=== PATIENT | male | born 1990 | race Two or more races ===

== ENCOUNTER 2018-04-23 07:03 | Emergency (ER) | payer MEDICAID, OTHER ==
[~2018-04-23] VITALS: Ht 172.7 cm; Wt 127.0 kg
[2018-04-23] MEDS ORDERED: SODIUM CHLORIDE 0.9% 1,000 ML IVB ONE (07:33)
[2018-04-23] MEDS ORDERED: KETOROLAC TROMETH 30 MG/ML 1ML VIAL IV ONE (07:45)
[2018-04-23] MEDS ORDERED: ONDANSETRON HCL 4 MG/2 ML VIAL IV ONE (07:45)
[2018-04-23] MEDS ORDERED: SODIUM CHLORIDE 0.9% 1,000 ML IV ONE (08:31)
[2018-04-23 08:35] LABS: Basophils # (auto) 0 uL; Basophils % (auto) 0.6 % (0.0-2.0); Eosinophils # (auto) 0.1 uL; Eosinophils % (auto) 1.7 % (0.0-7.0); Hemoglobin 13.3 g/dL (13.5-17.5); Lymphocytes # (auto) 0.9 uL; Lymphocytes % (auto) 16.7 % (10.0-50.0); Mean Corpuscular Hgb Conc. 33.3 g/dL (32.0-36.0); Monocytes # (auto) 0.3 uL; Monocytes % (auto) 5.9 % (0.0-12.0); Neutrophils # (auto) 4.1 uL; Neutrophils % (auto) 75.1 % (37.0-80.0); Platelet Count (auto) 207 10^3/uL (140-450); Red Cell Distribution Width 13.8 % (11.8-14.3); White Blood Cell 5.5 10^3/uL (4.4-10.8)
[2018-04-23 08:43] LABS: Albumin 3.3 g/dL (3.4-5.0); BUN/Creatinine Ratio 9.2; Potassium 4.4 mmol/L (3.5-5.1)
[2018-04-23 08:46] LABS: Bilirubin, Total 0.3 mg/dL (0.2-1.0)
[2018-04-23 09:26] LABS: Urine Bacteria FEW /hpf (None Seen); Urine Blood 3+ /uL (Negative); Urine Mucus FEW (None Seen); Urine Specific Gravity 1.018 (1.001-1.035); Urine WBC 4 /hpf (0 - 3)
[2018-04-23 10:47] VITALS: BP 145/67
== END 2018-04-23 10:54 | disposition home or self-care (01) ==
LOC: ER 07:03
DX: N20.0 Calculus of kidney (principal); F12.10 Cannabis abuse, uncomplicated
CPT/HCPCS: 36415; 74176; 80053; 81001; 85025; 96374; 96375; 99285; J1885; J2405

== ENCOUNTER 2021-12-02 09:44 | Emergency (ER) | payer MEDICAID ==
[~2021-12-02] VITALS: Ht 175.3 cm; Wt 150.1 kg
[2021-12-02] MEDS ORDERED: SODIUM CHLORIDE 0.9% 1,000 ML IV ONE (15:00)
[2021-12-02] MEDS ORDERED: cefTRIAXone 1GM/50ML D5W 50 ML IV ONE (15:00)
[2021-12-02] MEDS ORDERED: SODIUM CHLORIDE 0.9% 500 ML IV ONE (15:00)
[2021-12-02 15:24] LABS: Basophils # (auto) 0.1 10 ^3/uL (0-0.2); Basophils % (auto) 1.1 % (0.0-2.0); Eosinophils # (auto) 0.4 10 ^3/uL (0-0.8); Hematocrit 38.9 % (41.0-53.0); Hemoglobin 12.5 g/dL (13.5-17.5); Lymphocytes # (auto) 1.4 10 ^3/uL (0.4-5.4); Lymphocytes % (auto) 27.6 % (10.0-50.0); Mean Corpuscular Hemoglobin 27.7 pg (28.0-32.0); Mean Corpuscular Hgb Conc. 32.2 g/dL (32.0-36.0); Mean Corpuscular Volume 86.1 fL (80.0-100.0); Monocytes # (auto) 0.4 10 ^3/uL (0-1.3); Monocytes % (auto) 7.3 % (0.0-12.0); Neutrophils # (auto) 2.9 10 ^3/uL (1.6-8.6); Red Blood Cells 4.52 10^6/uL (4.5-5.90); Red Cell Distribution Width 15.5 % (11.8-14.3); White Blood Cell 5.1 10^3/uL (4.4-10.8)
[2021-12-02 15:43] LABS: Albumin 3.6 g/dL (3.4-5.0); Calcium 8.6 mg/dL (8.5-10.1); Magnesium 2.6 mg/dL (1.6-2.6); Potassium 3.9 mmol/L (3.5-5.1)
[2021-12-02 15:45] LABS: BUN/Creatinine Ratio 18.2
[2021-12-02 15:48] LABS: Bilirubin, Total 0.4 mg/dL (0.2-1.0); Total Protein 7.2 g/dL (6.4-8.2)
[2021-12-02] MEDS ORDERED: NAP500T PO (16:46)
[2021-12-02] MEDS ORDERED: CEFD300C2 PO (16:46)
[2021-12-02] MEDS ORDERED: SILV1CRE82 TOP (16:46)
[2021-12-02 17:56] VITALS: BP 121/81
== END 2021-12-02 18:00 | disposition home or self-care (01) ==
LOC: ER 09:44
DX: I87.031 Postthrombotic syndrome with ulcer and inflammation of right lower extremity (principal); I87.2 Venous insufficiency (chronic) (peripheral); E66.9 Obesity, unspecified; Z68.42 Body mass index [BMI] 45.0-49.9, adult
CPT/HCPCS: 36415; 71046; 80053; 83735; 85025; 93005; 93971; 96365; 99285; J0696; J7030

== ENCOUNTER 2023-01-20 11:08 | Inpatient (IN) | payer MEDICAID ==
[~2023-01-20] VITALS: Ht 175.3 cm; Wt 188.4 kg
[~2023-01-20 11:08] MED LIST: CEFD300C2 PO; NAP500T PO; SILV1CRE82 TOP
[2023-01-20] MEDS ORDERED: CLINDAMYCIN 900MG IV 50 ML IV ONE (13:45)
[2023-01-20] MEDS ORDERED: cefTRIAXone 1GM/50ML D5W 50 ML IV ONE (13:45)
[2023-01-20 14:22] LABS: Basophils # (auto) 0 10 ^3/uL (0-0.2); Basophils % (auto) 0.6 % (0.0-2.0); Eosinophils # (auto) 0.2 10 ^3/uL (0-0.8); Eosinophils % (auto) 2.6 % (0.0-7.0); Hematocrit 40.5 % (41.0-53.0); Hemoglobin 13.3 g/dL (13.5-17.5); Lymphocytes % (auto) 25.8 % (10.0-50.0); Mean Corpuscular Hemoglobin 27.5 pg (28.0-32.0); Mean Corpuscular Hgb Conc. 32.8 g/dL (32.0-36.0); Mean Corpuscular Volume 83.9 fL (80.0-100.0); Monocytes # (auto) 0.6 10 ^3/uL (0-1.3); Monocytes % (auto) 7.6 % (0.0-12.0); Neutrophils # (auto) 4.8 10 ^3/uL (1.6-8.6); Neutrophils % (auto) 63.4 % (37.0-80.0); Nucleated Red Blood Cells % 0.1 %; Red Blood Cells 4.83 10^6/uL (4.5-5.90); Red Cell Distribution Width 16.3 % (11.8-14.3); White Blood Cell 7.6 10^3/uL (4.4-10.8)
[2023-01-20 14:40] LABS: Albumin 3.8 g/dL (3.4-5.0); Potassium 3.5 mmol/L (3.5-5.1)
[2023-01-20 14:42] LABS: BUN/Creatinine Ratio 20.5 (10.0-20.0)
[2023-01-20 14:45] LABS: Bilirubin, Total 0.5 mg/dL (0.2-1.0); Total Protein 8.3 g/dL (6.4-8.2)
[2023-01-20] MEDS ORDERED: CLINDAMYCIN HCL 150 MG CAP PO ONE (15:00)
[2023-01-20] MEDS ORDERED: ACETAMINOPHEN 325 MG TAB PO PRN (16:15)
[2023-01-20] MEDS: SODIUM CHLORIDE 0.9% 1,000 ML IV SCH (17:46)
[2023-01-20 17:52] LABS: CRP High Sensitivity 3.05 mg/dL (< 0.3)
[2023-01-20 22:09] VITALS: PULSE 101; RESP 20; O2SAT 94
[2023-01-20] MEDS: CLINDAMYCIN HCL 150 MG CAP PO SCH (22:20)
[2023-01-20 23:07] VITALS: PULSE 94; RESP 17; O2SAT 96
[2023-01-20 23:15] VITALS: BP 122/68; PULSE 94; RESP 17; TEMP 98; O2SAT 94
[2023-01-21 05:00] VITALS: BP 146/74; PULSE 83; RESP 20; TEMP 98.9; O2SAT 96
[2023-01-21] MEDS: CLINDAMYCIN HCL 150 MG CAP PO SCH ×3 (05:28→21:13)
[2023-01-21 06:56] LABS: Basophils # (auto) 0 10 ^3/uL (0-0.2); Basophils % (auto) 0.5 % (0.0-2.0); Eosinophils # (auto) 0.2 10 ^3/uL (0-0.8); Eosinophils % (auto) 2.7 % (0.0-7.0); Lymphocytes # (auto) 1.7 10 ^3/uL (0.4-5.4); Lymphocytes % (auto) 26.7 % (10.0-50.0); Mean Corpuscular Hemoglobin 27.3 pg (28.0-32.0); Mean Corpuscular Hgb Conc. 32.4 g/dL (32.0-36.0); Mean Corpuscular Volume 84.3 fL (80.0-100.0); Monocytes # (auto) 0.5 10 ^3/uL (0-1.3); Monocytes % (auto) 8.1 % (0.0-12.0); Red Blood Cells 4.39 10^6/uL (4.5-5.90); White Blood Cell 6.5 10^3/uL (4.4-10.8)
[2023-01-21 07:12] LABS: Potassium 3.8 mmol/L (3.5-5.1)
[2023-01-21 07:21] LABS: Albumin 3.2 g/dL (3.4-5.0); Bilirubin, Total 0.4 mg/dL (0.2-1.0); Calcium 8.2 mg/dL (8.5-10.1); Total Protein 7.1 g/dL (6.4-8.2)
[2023-01-21 08:00] VITALS: PULSE 97; RESP 20; O2SAT 100
[2023-01-21 09:00] VITALS: BP 119/77; PULSE 97; RESP 20; TEMP 97.9; O2SAT 100
[2023-01-21] MEDS ORDERED: cefTRIAXone 1GM/50ML D5W 50 ML IV SCH (09:00)
[2023-01-21] MEDS: ENOXAPARIN SOD 40 MG/0.4 ML SYRINGE SC SCH (10:19)
[2023-01-21] MEDS: SODIUM CHLORIDE 0.9% 1,000 ML IV SCH (10:26)
[2023-01-21 12:46] VITALS: BP 145/74; PULSE 84; RESP 18; TEMP 98; O2SAT 96
[2023-01-21 16:58] VITALS: BP 130/85; PULSE 88; RESP 18; TEMP 98.7; O2SAT 100
[2023-01-21 22:00] VITALS: BP 118/84; PULSE 90; RESP 19; TEMP 98.4; O2SAT 93
[2023-01-22] MEDS: SODIUM CHLORIDE 0.9% 1,000 ML IV SCH (04:03)
[2023-01-22 05:00] VITALS: BP 137/94; PULSE 94; RESP 22; TEMP 98.4; O2SAT 98
[2023-01-22 05:58] LABS: Basophils # (auto) 0 10 ^3/uL (0-0.2); Basophils % (auto) 0.5 % (0.0-2.0); Eosinophils # (auto) 0.2 10 ^3/uL (0-0.8); Eosinophils % (auto) 2.9 % (0.0-7.0); Hematocrit 37.9 % (41.0-53.0); Hemoglobin 12.2 g/dL (13.5-17.5); Lymphocytes # (auto) 1.8 10 ^3/uL (0.4-5.4); Lymphocytes % (auto) 28.1 % (10.0-50.0); Mean Corpuscular Hemoglobin 27.4 pg (28.0-32.0); Mean Corpuscular Hgb Conc. 32.1 g/dL (32.0-36.0); Mean Corpuscular Volume 85.4 fL (80.0-100.0); Monocytes # (auto) 0.4 10 ^3/uL (0-1.3); Neutrophils # (auto) 3.9 10 ^3/uL (1.6-8.6); Neutrophils % (auto) 61.5 % (37.0-80.0); Nucleated Red Blood Cells % 0.1 %; Red Blood Cells 4.45 10^6/uL (4.5-5.90); Red Cell Distribution Width 15.8 % (11.8-14.3); White Blood Cell 6.3 10^3/uL (4.4-10.8)
[2023-01-22 06:15] LABS: BUN/Creatinine Ratio 22.8 (10.0-20.0); Calcium 8.1 mg/dL (8.5-10.1); Potassium 3.8 mmol/L (3.5-5.1)
[2023-01-22] MEDS: CLINDAMYCIN HCL 150 MG CAP PO SCH (06:56)
[2023-01-22 08:00] VITALS: BP 118/73; PULSE 91; RESP 20; RESP 91; TEMP 98.2; O2SAT 18; O2SAT 94
[2023-01-22] MEDS: ENOXAPARIN SOD 40 MG/0.4 ML SYRINGE SC SCH (09:38)
[2023-01-22] MEDS ORDERED: CLIN300C70 PO ×2 (10:52)
[2023-01-22 13:00] VITALS: BP 134/81; PULSE 87; RESP 20; TEMP 98.2; O2SAT 98
[2023-01-22] MEDS ORDERED: VANCOMYCIN PER PHARMACY 0 MG IV SCH (14:15)
[2023-01-22] MEDS: VANCOMYCIN 1GM/250ML 250 ML IV SCH ×3 (14:53→23:43)
[2023-01-22 17:00] VITALS: BP 127/78; PULSE 81; RESP 20; TEMP 98.6; O2SAT 94
[2023-01-22 20:00] VITALS: RESP 19
[2023-01-22 22:00] VITALS: BP 126/76; PULSE 72; RESP 18; TEMP 98; O2SAT 95
[2023-01-23 05:00] VITALS: BP 124/79; PULSE 87; RESP 16; TEMP 98.4; O2SAT 92
[2023-01-23] MEDS: VANCOMYCIN 1GM/250ML 250 ML IV SCH ×4 (05:50→23:36)
[2023-01-23 06:10] LABS: Basophils # (auto) 0 10 ^3/uL (0-0.2); Basophils % (auto) 0.6 % (0.0-2.0); Eosinophils # (auto) 0.2 10 ^3/uL (0-0.8); Eosinophils % (auto) 2.8 % (0.0-7.0); Hematocrit 37.3 % (41.0-53.0); Hemoglobin 12.4 g/dL (13.5-17.5); Lymphocytes # (auto) 1.6 10 ^3/uL (0.4-5.4); Lymphocytes % (auto) 25.1 % (10.0-50.0); Mean Corpuscular Hemoglobin 27.6 pg (28.0-32.0); Mean Corpuscular Hgb Conc. 33.1 g/dL (32.0-36.0); Mean Corpuscular Volume 83.5 fL (80.0-100.0); Monocytes # (auto) 0.4 10 ^3/uL (0-1.3); Neutrophils # (auto) 4.2 10 ^3/uL (1.6-8.6); Neutrophils % (auto) 65.5 % (37.0-80.0); Nucleated Red Blood Cells % 0.1 %; Red Blood Cells 4.47 10^6/uL (4.5-5.90); Red Cell Distribution Width 16.1 % (11.8-14.3); White Blood Cell 6.4 10^3/uL (4.4-10.8)
[2023-01-23 06:37] LABS: Potassium 3.9 mmol/L (3.5-5.1)
[2023-01-23 06:43] LABS: BUN/Creatinine Ratio 15.4 (10.0-20.0); Calcium 8.3 mg/dL (8.5-10.1)
[2023-01-23 08:00] VITALS: PULSE 71; RESP 22; O2SAT 0
[2023-01-23] MEDS: ENOXAPARIN SOD 40 MG/0.4 ML SYRINGE SC SCH (10:02)
[2023-01-23 12:53] VITALS: BP 118/78; PULSE 72; RESP 20; TEMP 97.9; O2SAT 94
[2023-01-23 16:41] VITALS: BP 141/70; PULSE 77; RESP 19; TEMP 98.3; O2SAT 96
[2023-01-23 20:00] VITALS: PULSE 79; RESP 18; O2SAT 94
[2023-01-23 20:09] LABS: Basophils # (auto) 0 10 ^3/uL (0-0.2); Basophils % (auto) 0.7 % (0.0-2.0); Eosinophils # (auto) 0.2 10 ^3/uL (0-0.8); Eosinophils % (auto) 2.8 % (0.0-7.0); Hematocrit 37.9 % (41.0-53.0); Hemoglobin 12.4 g/dL (13.5-17.5); Lymphocytes # (auto) 1.5 10 ^3/uL (0.4-5.4); Lymphocytes % (auto) 22.6 % (10.0-50.0); Mean Corpuscular Hemoglobin 27.2 pg (28.0-32.0); Mean Corpuscular Hgb Conc. 32.7 g/dL (32.0-36.0); Mean Corpuscular Volume 82.9 fL (80.0-100.0); Monocytes # (auto) 0.4 10 ^3/uL (0-1.3); Monocytes % (auto) 6.2 % (0.0-12.0); Neutrophils # (auto) 4.6 10 ^3/uL (1.6-8.6); Neutrophils % (auto) 67.7 % (37.0-80.0); Nucleated Red Blood Cells % 0.1 %; Red Blood Cells 4.58 10^6/uL (4.5-5.90); Red Cell Distribution Width 15.7 % (11.8-14.3); White Blood Cell 6.8 10^3/uL (4.4-10.8)
[2023-01-23 20:33] LABS: BUN/Creatinine Ratio 13.6 (10.0-20.0); Calcium 8.5 mg/dL (8.5-10.1); Potassium 3.5 mmol/L (3.5-5.1)
[2023-01-23 22:52] VITALS: BP 129/78; PULSE 80; RESP 18; TEMP 97.9; O2SAT 92
[2023-01-24 04:43] VITALS: BP 102/60; PULSE 78; RESP 18; TEMP 97.9; O2SAT 96
[2023-01-24] MEDS: VANCOMYCIN 1GM/250ML 250 ML IV SCH ×2 (05:37→12:15)
[2023-01-24 06:01] LABS: Basophils # (auto) 0 10 ^3/uL (0-0.2); Basophils % (auto) 0.6 % (0.0-2.0); Eosinophils # (auto) 0.2 10 ^3/uL (0-0.8); Eosinophils % (auto) 2.8 % (0.0-7.0); Hemoglobin 12.6 g/dL (13.5-17.5); Lymphocytes # (auto) 1.7 10 ^3/uL (0.4-5.4); Lymphocytes % (auto) 26.3 % (10.0-50.0); Mean Corpuscular Hemoglobin 27.7 pg (28.0-32.0); Mean Corpuscular Hgb Conc. 33.3 g/dL (32.0-36.0); Mean Corpuscular Volume 83.2 fL (80.0-100.0); Monocytes # (auto) 0.5 10 ^3/uL (0-1.3); Monocytes % (auto) 7.6 % (0.0-12.0); Neutrophils # (auto) 4.1 10 ^3/uL (1.6-8.6); Neutrophils % (auto) 62.7 % (37.0-80.0); Nucleated Red Blood Cells % 0.3 %; Red Blood Cells 4.56 10^6/uL (4.5-5.90); Red Cell Distribution Width 15.5 % (11.8-14.3); White Blood Cell 6.5 10^3/uL (4.4-10.8)
[2023-01-24 08:00] VITALS: BP_SYST 105; BP_SYST 121; BP_DIAS 46; BP_DIAS 78; PULSE 59; PULSE 67; RESP 22; TEMP 97.5; TEMP 98.4; O2SAT 95; O2SAT 97
[2023-01-24 08:30] VITALS: RESP 18; O2SAT 94
[2023-01-24] MEDS: ENOXAPARIN SOD 40 MG/0.4 ML SYRINGE SC SCH (10:10)
[2023-01-24] MEDS ORDERED: BACDST PO (10:12)
== END 2023-01-24 14:00 | disposition home or self-care (01) | DRG 383 ==
LOC: ER 11:08 → OVERFLOW 16:09 → WEST WING 22:51
PROVIDERS: ADMIT Internal Medicine; ATTEND Student in an Organized Health Care Education/Training Program
DX: L03.115 Cellulitis of right lower limb (principal); Z68.44 Body mass index [BMI] 60.0-69.9, adult; E66.01 Morbid (severe) obesity due to excess calories; E78.5 Hyperlipidemia, unspecified; F17.210 Nicotine dependence, cigarettes, uncomplicated; G47.33 Obstructive sleep apnea (adult) (pediatric); Z86.718 Personal history of other venous thrombosis and embolism
CPT/HCPCS: 36415; 80048; 80053; 80061; 80202; 82565; 83036; 83605; 83880; 84443; 85025; 86141; 87040; 93306; 93971; 96361; 96365; G0378; J0696

== ENCOUNTER 2023-03-18 17:01 | Emergency (ER) | payer MEDICAID ==
[~2023-03-18] VITALS: Ht 175.3 cm; Wt 184.0 kg
[~2023-03-18 17:01] MED LIST changes: +BACDST PO; -CEFD300C2 PO; -NAP500T PO; -SILV1CRE82 TOP
[2023-03-18 18:50] LABS: Basophils # (auto) 0.1 10 ^3/uL (0-0.2); Basophils % (auto) 0.7 % (0.0-2.0); Eosinophils # (auto) 0.1 10 ^3/uL (0-0.8); Eosinophils % (auto) 1.6 % (0.0-7.0); Hematocrit 39.1 % (41.0-53.0); Hemoglobin 12.8 g/dL (13.5-17.5); Lymphocytes # (auto) 1.6 10 ^3/uL (0.4-5.4); Lymphocytes % (auto) 18.2 % (10.0-50.0); Mean Corpuscular Hemoglobin 27.3 pg (28.0-32.0); Mean Corpuscular Hgb Conc. 32.8 g/dL (32.0-36.0); Mean Corpuscular Volume 83.3 fL (80.0-100.0); Monocytes # (auto) 0.5 10 ^3/uL (0-1.3); Monocytes % (auto) 5.9 % (0.0-12.0); Neutrophils # (auto) 6.4 10 ^3/uL (1.6-8.6); Neutrophils % (auto) 73.6 % (37.0-80.0); Red Cell Distribution Width 15.4 % (11.8-14.3); White Blood Cell 8.7 10^3/uL (4.4-10.8)
[2023-03-18 19:09] LABS: Alanine Aminotransferase 49 U/L (7-40); Albumin 4.3 g/dL (3.2-4.8); Alkaline Phosphatase 130 U/L (46-116); Anion Gap 7 (5-15); Aspartate Aminotransferase 25 U/L (13-40); BUN/Creatinine Ratio 16.5 (10.0-20.0); Bilirubin, Total 0.5 mg/dL (0.2-1.0); Blood Urea Nitrogen 13 mg/dL (9-23); Carbon Dioxide 27 mmol/L (20-30); Chloride 108 mmol/L (98-107); Glucose 109 mg/dL (74-106); Potassium 3.7 mmol/L (3.5-5.1); Sodium 142 mmol/L (136-145); Total Protein 7.3 g/dL (5.7-8.2)
[2023-03-18] MEDS ORDERED: BACDST PO (19:43)
[2023-03-18 20:09] VITALS: BP 141/83; PULSE 106; RESP 18; TEMP 98.2; O2SAT 96
== END 2023-03-18 20:15 | disposition home or self-care (01) ==
LOC: ER 17:01
DX: L03.115 Cellulitis of right lower limb (principal); F17.210 Nicotine dependence, cigarettes, uncomplicated; F15.90 Other stimulant use, unspecified, uncomplicated; Z79.899 Other long term (current) drug therapy
CPT/HCPCS: 36415; 80053; 85025

== ENCOUNTER 2023-05-08 14:04 | Inpatient (IN) | payer MEDICAID ==
[~2023-05-08] VITALS: Ht 175.3 cm; Wt 190.8 kg
[2023-05-08 15:25] LABS: Basophils # (auto) 0 10 ^3/uL (0-0.2); Basophils % (auto) 0.7 % (0.0-2.0); Eosinophils # (auto) 0.2 10 ^3/uL (0-0.8); Eosinophils % (auto) 2.2 % (0.0-7.0); Hematocrit 41.2 % (41.0-53.0); Hemoglobin 13.6 g/dL (13.5-17.5); Lymphocytes % (auto) 26.2 % (10.0-50.0); Mean Corpuscular Hemoglobin 27.3 pg (28.0-32.0); Mean Corpuscular Hgb Conc. 32.9 g/dL (32.0-36.0); Mean Corpuscular Volume 82.9 fL (80.0-100.0); Monocytes # (auto) 0.5 10 ^3/uL (0-1.3); Monocytes % (auto) 6.2 % (0.0-12.0); Neutrophils # (auto) 4.9 10 ^3/uL (1.6-8.6); Neutrophils % (auto) 64.7 % (37.0-80.0); Nucleated Red Blood Cells % 0.1 %; Red Blood Cells 4.97 10^6/uL (4.5-5.90); Red Cell Distribution Width 15.4 % (11.8-14.3); White Blood Cell 7.5 10^3/uL (4.4-10.8)
[2023-05-08 15:59] LABS: Alanine Aminotransferase 60 U/L (7-40); Albumin 4.6 g/dL (3.2-4.8); Alkaline Phosphatase 137 U/L (46-116); Anion Gap 7 (5-15); Aspartate Aminotransferase 28 U/L (13-40); BUN/Creatinine Ratio 11.2 (10.0-20.0); Bilirubin, Total 0.4 mg/dL (0.2-1.0); Blood Urea Nitrogen 10 mg/dL (9-23); Calcium 9.4 mg/dL (8.5-10.1); Carbon Dioxide 30 mmol/L (20-30); Chloride 103 mmol/L (98-107); Glucose 110 mg/dL (74-106); Potassium 4.1 mmol/L (3.5-5.1); Sodium 140 mmol/L (136-145); Total Protein 7.7 g/dL (5.7-8.2)
[2023-05-08 16:07] LABS: CRP High Sensitivity 1.79 mg/dL (<1.0)
[2023-05-08 16:12] LABS: Lactic Acid w/Reflex 3.8 mmol/L (0.4-2.0)
[2023-05-08 16:36] LABS: Erythrocyte Sedimentation Rate 56 mm/hr (0-20)
[2023-05-08] MEDS ORDERED: VANCOMYCIN 1GM/250ML 250 ML IV ONE (17:00)
[2023-05-08] MEDS ORDERED: SODIUM CHLORIDE 0.9% 1,000 ML IV ONE (18:30)
[2023-05-08] MEDS ORDERED: FUROSEMIDE 40 MG/4 ML VIAL IV ONE (18:30)
[2023-05-08] MEDS ORDERED: HYDROcodone-ACET 5/325MG TAB PO PRN (18:45)
[2023-05-08] MEDS ORDERED: ONDANSETRON HCL 4 MG/2 ML VIAL IV PRN (18:45)
[2023-05-08] MEDS ORDERED: DOCUSATE SOD 100 MG CAP PO PRN (18:45)
[2023-05-08] MEDS ORDERED: ACETAMINOPHEN 325 MG TAB PO PRN (18:45)
[2023-05-08 20:50] VITALS: PULSE 111; RESP 20; O2SAT 94
[2023-05-08 22:15] LABS: Amphetamine Screen, Urine Pos (NEGATIVE); Benzodiazephine Screen, Urine Neg (NEGATIVE)
[2023-05-08 22:16] LABS: Barbiturate Scree,Urine Neg (NEGATIVE); Cannabinoid Screen, Urine Pos (NEGATIVE); Cocaine Screen, Urine Neg (NEGATIVE); Opiate Scree,Urine Neg (NEGATIVE); Phencyclidine Screen, Urine Neg (NEGATIVE)
[2023-05-08 22:45] VITALS: BP 121/80; PULSE 106; RESP 20; TEMP 97.9; O2SAT 95
[2023-05-08 22:48] LABS: Urine Bacteria FEW /hpf (None Seen); Urine Blood Negative /uL (Negative); Urine Clarity HAZY (Clear); Urine Color Yellow (Yellow); Urine Hyaline Cast FEW /lpf (0 - 2); Urine Mucus FEW (None Seen); Urine Protein, UAD TRACE (Negative); Urine Specific Gravity 1.016 (1.001-1.035); Urine Sperm PRESENT /hpf (None Seen); Urine Urobilinogen Normal (Negative); Urine WBC 15 /hpf (0 - 3); Urine pH 5.5 (5.0-8.0)
[2023-05-08] MEDS ORDERED: IBUPROFEN 600 MG TAB PO PRN (23:30)
[2023-05-09] VITALS (7 sets, daily range): BP systolic 111–141; BP diastolic 69–94; PULSE 94–109; RESP 18–20; TEMP 97.8–98.3; O2SAT 91–97
[2023-05-09] MEDS ORDERED: INFLUENZA QUAD 2023-2024 0.5 ML SYRG IM ONE (00:30)
[2023-05-09 07:52] LABS: Basophils # (auto) 0 10 ^3/uL (0-0.2); Basophils % (auto) 0.5 % (0.0-2.0); Eosinophils # (auto) 0.1 10 ^3/uL (0-0.8); Hematocrit 38.7 % (41.0-53.0); Hemoglobin 12.9 g/dL (13.5-17.5); Lymphocytes # (auto) 1.6 10 ^3/uL (0.4-5.4); Lymphocytes % (auto) 23.6 % (10.0-50.0); Mean Corpuscular Hemoglobin 27.7 pg (28.0-32.0); Mean Corpuscular Hgb Conc. 33.3 g/dL (32.0-36.0); Mean Corpuscular Volume 83.3 fL (80.0-100.0); Monocytes # (auto) 0.5 10 ^3/uL (0-1.3); Monocytes % (auto) 7.4 % (0.0-12.0); Neutrophils # (auto) 4.6 10 ^3/uL (1.6-8.6); Neutrophils % (auto) 66.5 % (37.0-80.0); Nucleated Red Blood Cells % 0.1 %; Red Blood Cells 4.65 10^6/uL (4.5-5.90); Red Cell Distribution Width 15.2 % (11.8-14.3); White Blood Cell 6.9 10^3/uL (4.4-10.8)
[2023-05-09 08:12] LABS: Alanine Aminotransferase 58 U/L (7-40); Albumin 4.2 g/dL (3.2-4.8); Alkaline Phosphatase 129 U/L (46-116); Anion Gap 7 (5-15); Blood Urea Nitrogen 12 mg/dL (9-23); Calcium 9.1 mg/dL (8.5-10.1); Carbon Dioxide 29 mmol/L (20-30); Chloride 103 mmol/L (98-107); Glucose 123 mg/dL (74-106); Potassium 3.7 mmol/L (3.5-5.1); Sodium 139 mmol/L (136-145)
[2023-05-09 08:13] LABS: Aspartate Aminotransferase 27 U/L (13-40); Bilirubin, Total 0.3 mg/dL (0.2-1.0); Total Protein 7.2 g/dL (5.7-8.2)
[2023-05-09] MEDS: cefTRIAXone 1GM/50ML D5W 50 ML IV SCH (09:44)
[2023-05-09] MEDS: ENOXAPARIN SOD 40 MG/0.4 ML SYRINGE SC SCH (09:45)
[2023-05-10 05:00] VITALS: BP 145/85; PULSE 100; RESP 18; TEMP 98.4; O2SAT 93
[2023-05-10] MEDS: cefTRIAXone 1GM/50ML D5W 50 ML IV SCH (08:50)
[2023-05-10] MEDS: ENOXAPARIN SOD 40 MG/0.4 ML SYRINGE SC SCH (08:50)
[2023-05-10 10:57] VITALS: BP 129/76; PULSE 93; RESP 17; TEMP 98.7; O2SAT 95
[2023-05-12 09:26] LABS: Hepatitis B Surface Antigen Negative (Negative)
[2023-05-12 09:48] LABS: Hepatitis C Antibody Negative (Negative)
== END 2023-05-10 11:35 | disposition left against medical advice (07) | DRG 383 ==
LOC: ER 14:04 → OVERFLOW 18:46 → CENTRAL 22:51
PROVIDERS: ADMIT Nurse Practitioner Family; ATTEND Internal Medicine
DX: L03.116 Cellulitis of left lower limb (principal); Z68.44 Body mass index [BMI] 60.0-69.9, adult; E66.01 Morbid (severe) obesity due to excess calories; L03.115 Cellulitis of right lower limb; F17.210 Nicotine dependence, cigarettes, uncomplicated; F15.10 Other stimulant abuse, uncomplicated; F12.10 Cannabis abuse, uncomplicated; L03.032 Cellulitis of left toe; L85.3 Xerosis cutis; Z53.29 Procedure and treatment not carried out because of patient's decision for other reasons; Z86.718 Personal history of other venous thrombosis and embolism; Z71.6 Tobacco abuse counseling
CPT/HCPCS: 36415; 71046; 80053; 80307; 81001; 83605; 83880; 84484; 85025; 85652; 86141; 86803; 87040; 87340; 93005; 93970; 96365; 96375; G0378; J0696

== ENCOUNTER 2024-07-18 19:24 | Inpatient (IN) | payer MEDICAID ==
[~2024-07-18] VITALS: Ht 175.3 cm; Wt 215.9 kg
[~2024-07-18 19:24] MED LIST changes: -BACDST PO; +BUDE1AER4 IN; +FURO40TA4 PO; +HYDR25TA5 PO
--- NOTE | 2024-07-18 19:37 | ED.PDOC ---
SOB-HPI HPI Comments 33 y.o male presents to the ED via EMS for a chief complaint of SOB associated with right sided chest pain and an unwitnessed syncopal episode today. EMS reports patient began with SOB leading to chest pain that is non radiating, constant, and rating a 3/10 on the pain scale. SPO2 on scene read 89% room air with rales upon EMS's examination, state they gave one NTG dose which resolved chest pain and improved SOB. Patient had multiple recent diagnoses that include, CHF, cellulitis with a completed course of antibiotics, and PCP took him off Lasix but placed him on another water pill unspecified name of medication. Patient also had an Echocardiogram done about 5-6 days ago but results came back inconclusive. At this time, patient presents asymptomatic but did mention to EMS multiple syncopal episodes that started one month ago with no work up or follow up from PCP done yet. EKG read sinus tachycardiac for paramedics. Chief Complaint: Chest Pain Time Seen by MD: 19:27 Primary Care Provider: ROSEANNE Gómez notes: Nurses Notes, Fusion Juncture Grinder Notes, Medications, Allergies Information Source: Patient, Emergency Med Personnel Mode of Arrival: EMS Severity: Moderate Timing: Hours Duration: Since onset Context: At Rest PE Risk Factors: None History of: CHF Prehospital treatment: 12 Lead EKG, Ampoule Filler, NTG Modifying Factors: Nothing Associated Signs and Symptoms: Chest Pain Quality: Aching Radiation: No Radiation Location: Substernal Past Medical History PAST MEDICAL HISTORY: Asthma, CHF Surgical History: Denies all surgeries Family History Family History: Unknown Social History Smoker: Cigarettes Alcohol: Denies ETOH Use Drugs: Marijuana Lives In: Home Constitutional: denies: chills, diaphoresis, fatigue, fever, malaise, sweats, weakness, others EENTM: denies: blurred vision, double vision, ear bleeding, ear discharge, ear drainage, ear pain, ear ringing, eye pain, eye redness, hearing loss, mouth pain, mouth swelling, nasal discharge, nose bleeding, nose congestion, nose pain, photophobia, tearing, throat pain, throat swelling, voice changes, others Respiratory: reports: SOB at rest, shortness of breath, SOB with excertion; denies: cough, hemoptysis, orthopnea, stridor, wheezing, others Cardiovascular: reports: chest pain, syncope; denies: dizzy spells, diaphoresis, Dyspnea on exertion, edema, irregular heart beat, left arm pain, lightheadedness, palpitations, PND, others Gastrointestinal: denies: abdomen distended, abdominal pain, blood streaked bowels, constipated, diarrhea, dysphagia, difficulty swallowing, hematemesis, melena, nausea, poor appetite, poor fluid intake, rectal bleeding, rectal pain, vomiting, others Genitourinary: denies: burning, dysuria, flank pain, frequency, hematuria, incontinence, penile discharge, penile sore, pain, testicle pain, testicle swelling, urgency, others Neurological: denies: dizziness, fainting, headache, left sided numbness, left sided weakness, numbness, paresthesia, pre-existing deficit, right sided numbness, right sided weakness, seizure, speech problems, tingling, tremors, weakness, others Musculoskeletal: denies: back pain, gout, joint pain, joint swelling, muscle pain, muscle stiffness, neck pain, others Integumetry: denies: bruises, change in color, change in hair/nails, dryness, laceration, lesions, lumps, rash, wounds, others Allergic/Immunocompromised: denies: Difficulty Healing, Frequent Infections, Hives, Itching, others Hematologic/Lymphatic: denies: anemia, blood clots, easy bleeding, easy bruising, swollen glands, others Endocrine: denies: excessive hunger, excessive sweating, excessive thirst, excessive urination, flushing, intolerance to cold, intolerance to heat, unexplained weight gain, unexplained weight loss, others Psychiatric: denies: anxiety, bipolar disorder, depression, hopeless, panic disorder, schizophrenia, sleepless, suicidal, others All Other Systems: Reviewed and Negative Physical Exam General Appearance: No Apparent Distress, Normal HEENT: Normal ENT Inspection, Pharynx Normal, TMs Normal Neck: Full Range of Motion, Non-Tender, Normal, Normal Inspection Respiratory: Rales (bilaterally ) Cardiovascular: No Edema, No JVD, No Murmur, No Gallop, Normal Peripheral Pulses, Regular Rate/Rhythm Breast Exam: Deferred Gastrointestinal: No Organomegaly, Non Tender, No Pulsatile Mass, Normal Bowel Sounds, Soft Genitalia: Deferred Pelvic: Deferred Rectal: Deferred Extremities: No calf tenderness, Normal capillary refill, Normal inspection, Normal range of motion, Non-tender, No pedal edema, Other (No pitting edema) Musculoskeletal : Apperance: Normal Neurologic: Alert, tuber machine operator II-XII nml as Tested, No Motor Deficits, Normal Affect, Normal Mood, No Sensory Deficits Cerebellar Function: Normal Reflexes: Normal Skin: Dry, Normal Color, Warm Lymphatic: No Adenopathy EKG EKG : Pulse Rate (adult): 103 [place]: Normal Cardiac Rhythm: ST Block: None Hypertrophy: None ST: Normal Was a procedure done? Was a procedure done?: No Differential Dx Differential Diagnosis: Asthma, Bronchitis, CHF, COPD, Hyperventilation, Pneumonia, Pulmonary Embolism, Respiratory Distress, URI, Other (ACS) X-Ray, Labs, Meds, VS Vital Signs Date Time Temp Pulse Resp B/P (MAP) Pulse Ox O2 Delivery O2 Flow Rate FiO2 07/18/24 23:41 100 07/18/24 22:18 97 07/18/24 20:07 103 07/18/24 19:29 97.9 106 22 122/74 (90) 98 07/18/24 19:24 103 Lab Test 07/19/24 02:36 07/18/24 23:10 07/18/24 20:53 07/18/24 19:49 Range/Units D-Dimer, Quantitative 0.95 H 0.0-0.49 mg/L FEU Troponin I High Sensitivity 4 4 3 L </=54 ng/L White Blood Count 8.3 4.4-10.8 10^3/uL Red Blood Count 4.64 4.5-5.90 10^6/uL Hemoglobin 11.7 L 13.5-17.5 g/dL Hematocrit 36.6 L 41.0-53.0 % Mean Corpuscular Volume 78.8 L 80.0-100.0 fL Mean Corpuscular Hemoglobin 25.3 L 28.0-32.0 pg Mean Corpuscular Hemoglobin Concent 32.1 32.0-36.0 g/dL Red Cell Distribution Width 16.3 H 11.8-14.3 % Platelet Count 273 140-450 10^3/uL Mean Platelet Volume 7.5 6.9-10.8 fL Neutrophils (%) (Auto) 68.9 37.0-80.0 % Lymphocytes (%) (Auto) 20.1 10.0-50.0 % Monocytes (%) (Auto) 7.1 0.0-12.0 % Eosinophils (%) (Auto) 3.5 0.0-7.0 % Basophils (%) (Auto) 0.4 0.0-2.0 % Neutrophils # (Auto) 5.7 1.6-8.6 10 ^3/uL Lymphocytes # (Auto) 1.7 0.4-5.4 10 ^3/uL Monocytes # (Auto) 0.6 0-1.3 10 ^3/uL Eosinophils # (Auto) 0.3 0-0.8 10 ^3/uL Basophils # (Auto) 0 0-0.2 10 ^3/uL Nucleated Red Blood Cells 0.0 % Sodium Level 140 136-145 mmol/L Potassium Level 3.9 3.5-5.1 mmol/L Chloride Level 104 98-107 mmol/L Carbon Dioxide Level 30 20-31 mmol/L Anion Gap 6 5-15 Blood Urea Nitrogen 14 9-23 mg/dL Creatinine 0.92 0.700-1.30 mg/dL Glomerular Filtration Rate Calc 112 >90 mL/min BUN/Creatinine Ratio 15.2 10.0-20.0 Serum Glucose 211 H 74-106 mg/dL Calcium Level 9.3 8.7-10.4 mg/dL Total Bilirubin 0.3 0.2-1.0 mg/dL Aspartate Amino Transferase (AST) 39 13-40 U/L Alanine Aminotransferase (ALT) 61 H 7-40 U/L Alkaline Phosphatase 118 H 46-116 U/L B-Type Natriuretic Peptide 8.87 0-100 pg/mL Total Protein 7.7 5.7-8.2 g/dL Albumin 4.2 3.2-4.8 g/dL X-Ray, Labs, Meds, VS Comment CXR FINDINGS: Lines and Tubes: None Lungs: Clear. Pleura: No effusion. No pneumothorax. Cardiomediastinal contours: Unremarkable Bones: Unremarkable IMPRESSION:No abnormality demonstrated. MDM: Patient with history as above presented with chest pain and shortness of breath. History obtained from EMS the patient. Patient was nontoxic, stable, afebrile, in EMS gurney, no acute distress. Exam as above. Labs reviewed. CBC did not show leukocytosis. Mild anemia noted with hemoglobin 11.7 and hematocrit at 36.6. CMP did not show any significant electrolyte abnormalities. Normal renal function. Troponin x3 negative. BNP within normal limits. Independently reviewed imaging. CXR did not show acute cardiopulmonary disease. Reviewed external records. All findings were discussed with the patient. Differential diagnosis considered. Overall presentation is consistent with nonspecific chest pain and shortness of breath, possibly angina versus acute asthma exacerbation. Low suspicion for ACS, pneumonia, CHF exacerbation. Patient has been stable and has not had shortness of breath during the entire course of ED after nitro by ambulance. He has not complained of any chest pain. However, he has been mildly tachycardic and was hypoxic initially. I have ordered CT angio of the chest to rule out pulmonary embolism, however due to ana davenport's size, he is unable to do the CT scan. Ordered D-dimer, which was positive. Consulted ED attending Dr. Gomez, who suggested to admit the patient for V/Q scan. Disposition: Admit. This medical document was created using the [employer] dictation system. Although this document has been carefully reviewed, there may still be some phonetic and typographical errors, which are due to imperfections of the software program, and do not reflect any compromise in the patient's medical care. Time of 1ST Reevaluation: 19:45 Reevaluation 1ST: Unchanged Time of 2ND Reevaluation: 04:16 Reevaluation 2ND: Improved Patient Education/Counseling: Diagnosis, Treatment, Prognosis Family Education/Counseling: No Family Present Departure 1 Departure Time of Disposition: 04:16 Impression: Primary Impression: Chest pain Qualified Codes: R07.89 - Other chest pain Additional Impression: Shortness of breath Disposition: ADMITTED INPATIENT Condition: Fair e-Prescriptions No Active Prescriptions or Reported Meds Critical Care Note Critical Care Time?: No Stability Stability form required: No Heart Score Heart Score: Heart Score Response (Comments) Value History Moderate Suspicious 1 EKG Normal 0 Age <45 0 Risk Factors >3 or Hx ASHD 2 Troponin Normal limit 0 Total 3 I personally scribed for ER (EMERGENCY) on 07/18/24 at 19:45. Electronically submitted by Arlen Obrien ([facility]). I personally scribed for ER (EMERGENCY) on 07/18/24 at 22:20. Electronically submitted by Arlen Obrien ([facility]). SHAD SERRATO PAC Jul 18, 2024 19:37 ER Jul 18, 2024 19:45
[2024-07-18 19:57] LABS: Basophils # (auto) 0 10 ^3/uL (0-0.2); Basophils % (auto) 0.4 % (0.0-2.0); Eosinophils # (auto) 0.3 10 ^3/uL (0-0.8); Eosinophils % (auto) 3.5 % (0.0-7.0); Hematocrit 36.6 % (41.0-53.0); Hemoglobin 11.7 g/dL (13.5-17.5); Lymphocytes # (auto) 1.7 10 ^3/uL (0.4-5.4); Lymphocytes % (auto) 20.1 % (10.0-50.0); Mean Corpuscular Hemoglobin 25.3 pg (28.0-32.0); Mean Corpuscular Hgb Conc. 32.1 g/dL (32.0-36.0); Mean Corpuscular Volume 78.8 fL (80.0-100.0); Monocytes # (auto) 0.6 10 ^3/uL (0-1.3); Monocytes % (auto) 7.1 % (0.0-12.0); Neutrophils # (auto) 5.7 10 ^3/uL (1.6-8.6); Neutrophils % (auto) 68.9 % (37.0-80.0); Platelet Count (auto) 273 10^3/uL (140-450); Red Blood Cells 4.64 10^6/uL (4.5-5.90); Red Cell Distribution Width 16.3 % (11.8-14.3); White Blood Cell 8.3 10^3/uL (4.4-10.8)
[2024-07-18 20:14] LABS: Albumin 4.2 g/dL (3.2-4.8); Anion Gap 6 (5-15); Aspartate Aminotransferase 39 U/L (13-40); BUN/Creatinine Ratio 15.2 (10.0-20.0); Blood Urea Nitrogen 14 mg/dL (9-23); Calcium 9.3 mg/dL (8.7-10.4); Carbon Dioxide 30 mmol/L (20-31); Chloride 104 mmol/L (98-107); Potassium 3.9 mmol/L (3.5-5.1); Sodium 140 mmol/L (136-145); Total Protein 7.7 g/dL (5.7-8.2)
--- NOTE | 2024-07-18 20:18 | DVH ---
CHEST RADIOGRAPH Indication: R/o effusion Technique: Frontal and lateral view of the chest was obtained Comparison: XY CHEST TWO VIEWS ROUTINE on DOS: 05/08/23, CHEST TWO VIEWS ROUTINE on DOS: 12/02/21, CXR 2 on DOS: 12/02/21 FINDINGS: Lines and Tubes: None Lungs: Clear. Pleura: No effusion. No pneumothorax. Cardiomediastinal contours: Unremarkable Bones: Unremarkable IMPRESSION:No abnormality demonstrated.
[2024-07-18 20:20] LABS: Alanine Aminotransferase 61 U/L (7-40); Alkaline Phosphatase 118 U/L (46-116); Bilirubin, Total 0.3 mg/dL (0.2-1.0); Glucose 211 mg/dL (74-106)
--- NOTE | 2024-07-19 07:06 | ECG ---
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
--- NOTE | 2024-07-19 07:06 | ECG ---
[facility] Test Date: 2024-07-18 Test Time: 22:18:44 Pat Name: NORIS STROUD Department: ER Room: 0296T Gender: M Product Safety Associate: : 1990 Requested By: SHAD SERRATO Order Number: [id number] Reading MD: Johny Bunch Measurements Intervals [place] Rate: 97 P: 81 [place]: 173 QRS: 105 QRSD: 102 T: 20 QT: 355 QTc: 451 Interpretive Statements Sinus rhythm Left posterior fascicular block ST elevation, consider lateral injury Electronically Signed On 07-22-2024 10:36:59 PST by Johny Bunch Please click the below link to view image of tracing.
--- NOTE | 2024-07-19 07:09 | ECG ---
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
[2024-07-19 09:22] VITALS: PULSE 95; RESP 20; O2SAT 95
[2024-07-19] MEDS ORDERED: MORPHINE SULFATE INJ 2 MG/ml SYRG IV PRN ×2 (10:15→10:30)
[2024-07-19] MEDS ORDERED: ONDANSETRON HCL 4 MG/2 ML VIAL IV PRN ×2 (10:15→10:30)
[2024-07-19] MEDS ORDERED: NITROGLYCERIN 0.4 MG SL TAB SL PRN ×2 (10:15→10:30)
[2024-07-19] MEDS ORDERED: HYDROcodone-ACET 5/325MG TAB PO PRN (10:15)
[2024-07-19] MEDS ORDERED: ACETAMINOPHEN 325 MG TAB PO PRN ×2 (10:15→10:30)
[2024-07-19] MEDS ORDERED: DOCUSATE SOD 100 MG CAP PO PRN ×2 (10:15→10:30)
--- NOTE | 2024-07-19 10:24 | DVHHP2 ---
History of Present Illness Reason for Visit: Shortness of breath, chest pain History of Present Illness Deangelo Shafer is a 33-year-old male with past medical history of morbid obesity, CHF, asthma, cellulitis, and a DVT in 2019. who came in with complaints of chest pain. Patient states his chest pain is right sided and associated with shortness of breath. He states he has had 3 syncopal episodes since April 2024. Patient states his chest pain worsens with deep breathing. D-dimer is elevated. Unable to complete CTA of chest due to body habitus. Cardiovascular: CHF Pulmonary: Asthma Heme/Onc: Other (DVT) Past Surgical History: None Family History: None Smoke: Quit (2 months ago) ALCOHOL: none Drugs: Marijuana Lives: with Family Domestic Violence: Neg Review of Systems Constitutional: No: Fever, Chills, Sweats, Weakness, Malaise, Other Eyes: No: Pain, Vision change, Conjunctivae inflammation, Eyelid inflammation, Other, Redness ENT: No: Ear pain, Ear discharge, Nose pain, Nose discharge, Nose congestion, Mouth pain, Mouth swelling, Throat pain, Throat swelling, Other Respiratory: Shortness of breath, SOB with excertion; No: Cough, Dry, Wheezing, Hemoptysis, Pleuritic Pain, Sputum, Wheezing, Other Cardiovascular: Chest Pain, Palpitations; No: Orthopnea, Paroxysmal Noc. Dyspnea, Edema, Lt Headedness, Other Gastrointestinal: No: Nausea, Vomiting, Abdominal Pain, Diarrhea, Constipation, Melena, Hematochezia, Other Genitourinary: No Dysuria, No Frequency, No Incontinence, No Hematuria, No Retention, No Other Musculoskeletal: No: other, neck pain, shoulder pain, arm pain, back pain, hand pain, leg pain, foot pain Skin: No: Rash, Lesions, Jaundice, Bruising, Other Neurological: No: Weakness, Numbness, Incoordination, Change in speech, Confusion, Seizures, Other Allergies: Coded Allergies: NO KNOWN ALLERGIES (Unverified , 12/02/21) Medications Current Medications Medications Dose Ordered Sig/Miki Route Start Time Stop Time Status Last Admin Dose Admin Sodium Chloride 10 ml Q8HR IV 07/19/24 14:00 UNV Acetaminophen/ Hydrocodone Bitart 1 tab Q4HP PRN PO 07/19/24 10:15 UNV Ondansetron HCl 4 mg Q4HP PRN IV 07/19/24 10:15 UNV Docusate Sodium 100 mg BIDPRN PRN PO 07/19/24 10:15 UNV Acetaminophen 650 mg Q6HP PRN PO 07/19/24 10:15 UNV Nitroglycerin 0.4 mg Q5MINP PRN SL 07/19/24 10:15 UNV Morphine Sulfate 2 mg Q30M PRN IV 07/19/24 10:15 UNV Hydrochlorothiazide 25 mg DAILY PO 07/20/24 10:00 UNV Exam Vital Signs Vital Signs Date Time Temp Pulse Resp B/P (MAP) Pulse Ox O2 Delivery O2 Flow Rate FiO2 07/19/24 09:22 95 20 95 Room Air* 0 21 07/19/24 08:39 98.1 153/95 (114) 98.1 General Appearance: Alert, Oriented X3, Cooperative, moderate distress HEENT: Atraumatic, PERRLA Respiratory: Other (Diminshed breath sounds) Cardiovascular: Normal S1, Normal S2, Other (tachycardia) Extremities: No clubbing, Other (bilateral lower extremity edema) Skin: No rashes, No breakdown, No significant lesion Neuro: Normal speech Psych/Mental Status: Mental status NL, Mood NL Labs/Xrays Labs Test 07/19/24 02:36 07/18/24 23:10 07/18/24 19:49 Range/Units D-Dimer, Quantitative 0.95 H 0.0-0.49 mg/L FEU Troponin I High Sensitivity 4 </=54 ng/L White Blood Count 8.3 4.4-10.8 10^3/uL Red Blood Count 4.64 4.5-5.90 10^6/uL Hemoglobin 11.7 L 13.5-17.5 g/dL Hematocrit 36.6 L 41.0-53.0 % Mean Corpuscular Volume 78.8 L 80.0-100.0 fL Mean Corpuscular Hemoglobin 25.3 L 28.0-32.0 pg Mean Corpuscular Hemoglobin Concent 32.1 32.0-36.0 g/dL Red Cell Distribution Width 16.3 H 11.8-14.3 % Platelet Count 273 140-450 10^3/uL Mean Platelet Volume 7.5 6.9-10.8 fL Neutrophils (%) (Auto) 68.9 37.0-80.0 % Lymphocytes (%) (Auto) 20.1 10.0-50.0 % Monocytes (%) (Auto) 7.1 0.0-12.0 % Eosinophils (%) (Auto) 3.5 0.0-7.0 % Basophils (%) (Auto) 0.4 0.0-2.0 % Neutrophils # (Auto) 5.7 1.6-8.6 10 ^3/uL Lymphocytes # (Auto) 1.7 0.4-5.4 10 ^3/uL Monocytes # (Auto) 0.6 0-1.3 10 ^3/uL Eosinophils # (Auto) 0.3 0-0.8 10 ^3/uL Basophils # (Auto) 0 0-0.2 10 ^3/uL Nucleated Red Blood Cells 0.0 % Sodium Level 140 136-145 mmol/L Potassium Level 3.9 3.5-5.1 mmol/L Chloride Level 104 98-107 mmol/L Carbon Dioxide Level 30 20-31 mmol/L Anion Gap 6 5-15 Blood Urea Nitrogen 14 9-23 mg/dL Creatinine 0.92 0.700-1.30 mg/dL Glomerular Filtration Rate Calc 112 >90 mL/min BUN/Creatinine Ratio 15.2 10.0-20.0 Serum Glucose 211 H 74-106 mg/dL Calcium Level 9.3 8.7-10.4 mg/dL Total Bilirubin 0.3 0.2-1.0 mg/dL Aspartate Amino Transferase (AST) 39 13-40 U/L Alanine Aminotransferase (ALT) 61 H 7-40 U/L Alkaline Phosphatase 118 H 46-116 U/L B-Type Natriuretic Peptide 8.87 0-100 pg/mL Total Protein 7.7 5.7-8.2 g/dL Albumin 4.2 3.2-4.8 g/dL CHEST RADIOGRAPH FINDINGS: Lines and Tubes: None Lungs: Clear. Pleura: No effusion. No pneumothorax. Cardiomediastinal contours: Unremarkable Bones: Unremarkable IMPRESSION:No abnormality demonstrated. Assessment/Plan Assessment/Plan Assessment: Shortness of breath, Acute chest pain, CHF, Asthma, Plan: Admit to tele, Bilateral lower extremity ultrasound, ECHO, Lovenox BID, VQ scan, Breathing treatments as needed, Home medications reconciled, Plan discussed with: Patient My Orders Orders - MAEGAN MALDONADO Procedure Category Date Status Time Admit ADMIT 07/19/24 Transmitted 10:11 Code Status CODE 07/19/24 Transmitted 10:11 Sodium Chloride Lock PHA 07/19/24 Logged (Saline Lock Ns) 14:00 Hydrocodone-Acet PHA 07/19/24 Logged 5/325mg Tab ([place] 10:15 Ondansetron Hcl PHA 07/19/24 Logged (Zofran) 10:15 Docusate Sodium PHA 07/19/24 Logged Capsule (Colace 10:15 Fall Risk Precautions NARDA 07/19/[address] 10:11 Complete Blood Count LAB 07/20/24 Verified 04:00 Comprehensive LAB 07/20/24 Verified Metabolic Panel 04:00 Cardiac DIET 07/19/24 Transmitted Diet-2gna,Lofat,Lochol Lunch Echo 2d Mode Cardiac US 07/19/24 Logged DOP 10:11 Condition: Critical NARDA 07/19/24 In Process 10:11 Acetaminophen Tablet PHA 07/19/24 Logged (Tylenol Tablet) 10:15 Nitroglycerin PHA 07/19/24 Logged Sublingual (Ntrostat 10:15 Morphine Sulfate PHA 07/19/24 Logged Injection 10:15 Stat Ekg For Chest NARDA 07/19/24 In Process Pain 10:11 Notify Md Of Changes NARDA 07/19/24 In Process From Base 10:11 Correctional Food Service Supervisor For NARDA 07/19/24 In Process 24 Hours 10:11 Emergency Dysrhythmia NARDA 07/19/24 In Process Protocol 10:11 Rhythm Strips Once NARDA 07/19/24 In Process Every Shift 10:11 Oxygen By Nasal RT 07/19/24 Transmitted Cannula 10:11 Bilat Lower Dvt US 07/19/24 Logged 10:11 Hydrochlorothiazide PHA 07/20/24 Logged Tablet (Hydrochlorot 10:00 Date of Service: Jul 19, 2024 Billing Provider: MAEGAN MALDONADO Common Visit Codes: [id number] INP/OBS CARE (MOD) MAEGAN MALDONADOP Jul 19, 2024 10:24
--- NOTE | 2024-07-19 10:53 | DVH ---
Bilateral lower extremity venous duplex Clinical History: R/O DVT Comparison: None Technique: Duplex Doppler evaluation of the deep venous systems of both lower extremities from the co mmon femoral veins to the popliteal veins including color Doppler and spectral/pulsed waveform analys is was performed. Findings: RIGHT SIDE: The common femoral vein demonstrates appropriate compressibility and waveform variability . There is compressibility/patency of the great saphenous vein at the proximal thigh . The femoral vein demonstrates appropriate compressibility and waveform variability . The deep femoral vein demonstrates appropriate compressibility and waveform variability . The popliteal vein demonstrates appropriate compressibility and waveform variability . There is color flow at the tibioperoneal trunk and in the posterior tibial vein. LEFT SIDE: The common femoral vein demonstrates appropriate compressibility and waveform variability . There is compressibility/patency of the great saphenous vein at the proximal thigh . The femoral vein demonstrates appropriate compressibility and waveform variability . The deep femoral vein demonstrates appropriate compressibility and waveform variability . The popliteal vein demonstrates appropriate compressibility and waveform variability . There is color flow at the tibioperoneal trunk and in the posterior tibial vein. Impression: 1. No right or left femoropopliteal venous thrombosis.
[2024-07-19] MEDS ORDERED: SODIUM CHLOR 0.9% PF (SALINE LOCK) 10ML VIAL/SYR IV SCH (14:00)
[2024-07-19] MEDS: SODIUM CHLOR 0.9% PF (SALINE LOCK) 10ML VIAL/SYR IV SCH (14:22)
--- NOTE | 2024-07-19 15:28 | DVH ---
EXAM: NM NM VQ SCAN HISTORY: PULMONARY EMBOLISM COMPARISON: None TECHNIQUE: Following the administration of the ventilation agent, standard projections of the lungs were acquired. The same images were repeated after administration of the perfusion agent. Findings: Ventilation images demonstrate homogenous distribution of radiotracer throughout both lungs. Perfusion images demonstrate homogeneous distribution of radiotracer throughout both lungs. No periph eral wedge-shaped moderate or large subsegmental or segmental mismatched perfusion defects to suggest acute pulmonary embolism. Impression: 1. Based on PIOPED criteria, low probability for pulmonary embolism.
[2024-07-19 21:42] VITALS: BP 131/74; PULSE 104; RESP 20; TEMP 99.2; O2SAT 95
[2024-07-19] MEDS ORDERED: ENOXAPARIN SOD 150 MG/1 ML SYRINGE SC SCH (22:00)
[2024-07-19 22:13] VITALS: BP 131/74; PULSE 104; RESP 20; TEMP 99.2; O2SAT 95
[2024-07-19] MEDS: ENOXAPARIN SOD 150 MG/1 ML SYRINGE SC SCH (23:30)
[2024-07-20] VITALS (16 sets, daily range): BP systolic 105–133; BP diastolic 64–75; PULSE 84–105; RESP 18–20; TEMP 98.1–99.2; O2SAT 90–100
[2024-07-20] MEDS: ALBUTEROL SULF 2.5 MG/0.5ML(0.5%) NEB SOLN NEB PRN (00:11)
[2024-07-20] MEDS: IPRATROPIUM BROM 0.5 MG/2.5ML INH SOL NEB PRN (00:11)
[2024-07-20 07:41] LABS: Basophils # (auto) 0 10 ^3/uL (0-0.2); Eosinophils # (auto) 0.2 10 ^3/uL (0-0.8); Lymphocytes # (auto) 1.5 10 ^3/uL (0.4-5.4); Monocytes # (auto) 0.5 10 ^3/uL (0-1.3); Red Cell Distribution Width 17.1 % (11.8-14.3)
[2024-07-20 07:44] LABS: Basophils % (auto) 0.6 % (0.0-2.0); Eosinophils % (auto) 2.8 % (0.0-7.0); Hematocrit 36.7 % (41.0-53.0); Hemoglobin 11.6 g/dL (13.5-17.5); Lymphocytes % (auto) 21.5 % (10.0-50.0); Mean Corpuscular Hemoglobin 25.1 pg (28.0-32.0); Mean Corpuscular Hgb Conc. 31.6 g/dL (32.0-36.0); Mean Corpuscular Volume 79.6 fL (80.0-100.0); Monocytes % (auto) 6.6 % (0.0-12.0); Neutrophils # (auto) 4.8 10 ^3/uL (1.6-8.6); Neutrophils % (auto) 68.5 % (37.0-80.0); Nucleated Red Blood Cells % 0.1 %; Platelet Count (auto) 269 10^3/uL (140-450); Red Blood Cells 4.61 10^6/uL (4.5-5.90)
[2024-07-20 07:50] LABS: Albumin 4.1 g/dL (3.2-4.8); Anion Gap 7 (5-15); Aspartate Aminotransferase 35 U/L (13-40); BUN/Creatinine Ratio 19.4 (10.0-20.0); Blood Urea Nitrogen 14 mg/dL (9-23); Calcium 9.2 mg/dL (8.7-10.4); Carbon Dioxide 30 mmol/L (20-31); Chloride 104 mmol/L (98-107); Sodium 141 mmol/L (136-145)
[2024-07-20 07:51] LABS: Bilirubin, Total 0.4 mg/dL (0.2-1.0); Total Protein 7.6 g/dL (5.7-8.2)
[2024-07-20 07:59] LABS: Alanine Aminotransferase 60 U/L (7-40); Alkaline Phosphatase 117 U/L (46-116); Glucose 144 mg/dL (74-106)
[2024-07-20] MEDS: hydroCHLOROthiazide 25 MG TAB PO SCH (09:40)
[2024-07-20] MEDS ORDERED: hydroCHLOROthiazide 25 MG TAB PO SCH (10:00)
--- NOTE | 2024-07-20 11:54 | DVHPNRES ---
Progress Note Date Seen: Jul 20, 2024 Resident Creating Document: TIM BETTENCOURT RESIDENT Medical Necessity Reason Pt with a Central, PICC or Fol: No Subjective Review of Systems This is a 33-year-old male patient with past medical history of obstructive sleep apnea - not on CPAP, hypertension who presented to the ER with a chief complaint of syncopal episodes, shortness of breath and lower extremity edema. He has a had 3 syncopal episodes, 1 on , 2nd on , 3rd was yesterday, in which patient felt darkened vision while he was walking in his house and he collapsed immediately. Denies any triggers or any nausea, diaphoresis, feeling of warmth or prior to the episode. He reports that he wakes up within 30 seconds of the episode and he is confused but does not bit his tongue or lose his urine/bowel. Denies Seizure-like activity. Also reports shortness of breaths on exertion, orthopnea and PND. Patient will bilateral lower extremity edema for the past 2 years, he is taking antibiotics which did not help with the swelling. A1c was performed which is 7.3. Patient was admitted last month at [facility] where he was told he has sepsis due to pneumonia and also was diagnosed with congestive heart failure. Social history: Lives with mother, denies smoking/drinking/illicit drug use Patient seen and examined at the bedside. Objective vital signs Vital Sign Date Time Temp Pulse Resp B/P (MAP) Pulse Ox O2 Delivery O2 Flow Rate FiO2 07/20/24 09:40 115/67 07/20/24 09:00 98.2 100 18 91 98.2 07/20/24 06:47 Room Air 0.0 07/20/24 06:47 21 Total Intake and Output 07/19/24 07/19/24 07/20/24 15:00 23:00 07:00 Intake Total 800 ml Balance 800 ml medications Current Medications Medications Dose Ordered Sig/Miki Route Start Time Stop Time Status Last Admin Dose Admin Sodium Chloride 10 ml Q8HR IV 07/19/24 14:00 07/20/24 06:00 10 ML Ondansetron HCl 4 mg Q4HP PRN IV 07/19/24 10:30 Morphine Sulfate 2 mg Q30M PRN IV 07/19/24 10:30 Enoxaparin Sodium 150 mg Q12HR SC 07/19/24 22:00 07/20/24 09:41 150 MG Acetaminophen/ Hydrocodone Bitart 1 tab Q4HP PRN PO 07/19/24 10:30 Docusate Sodium 100 mg BIDPRN PRN PO 07/19/24 10:30 Acetaminophen 650 mg Q6HP PRN PO 07/19/24 10:30 Nitroglycerin 0.4 mg Q5MINP PRN SL 07/19/24 10:30 Hydrochlorothiazide 25 mg DAILY PO 07/20/24 10:00 07/20/24 09:40 25 MG Ipratropium [place] 0.5 mg Q4HPRN PRN NEB 07/19/24 18:00 07/20/24 00:11 0.5 MG Albuterol 2.5 mg Q4HPRN PRN NEB 07/19/24 18:00 07/20/24 00:11 2.5 MG Examination Morbidly obese patient lying in bed, in no acute distress General: afebrile, palor, mucosae are moist. Has buffalo hump, skin tags and acanthosis nigricans. Cardiovascular: Regular S1 and S2. No murmurs, gallops or rubs. No JVD elevation. No pedal edema Respiratory: Normal B/L air entry on room air. Clear lung sounds on auscultation Abdomen: Soft, nontender, nondistended, normoactive bowel sounds, no rebound tenderness, no organomegaly, no masses Genitourinary: Deferred MSK/skin: Mobilizes 4 limbs. Skin is dry and warm. Bilateral lower extremities are swollen, erythematous, right greater than left Neurological: No motor, no sensitive deficits, normal speech. Pupils are isocoric and reactive. Psych/Mental Status: A/Ox4 laboratory and microbiology Laboratory Tests 07/20/24 06:33 Test 07/20/24 06:33 Range/Units Serum Glucose 144 H 74-106 mg/dL Labs and/or images reviewed: Labs reviewed by me, Image(s) reviewed by me Problem List/Assessment/Plan Problem List/Assessment/Plan Sepsis secondary to pneumonia, Gram-positive and negative Obstructive sleep apnea Ruled out PE Started IV ceftriaxone and azithromycin 07/20 CPAP nighttime Ipratropium and albuterol nebulized treatment Uncontrolled hypertension Continue hydrochlorothiazide 25 mg daily ?? Edwin Syndrome Random cortisol ordered New onset diabetes mellitus type 2 - A1c 7.3 Previous A1c 6.4 Diabetic education provided Metformin 500 mg daily on discharge ? Chronic venous insufficiency Lower extremity Doppler negative Arterial Doppler pending Norberto stockings Anemia likely microcytic Iron Panel pending Transaminitis secondary to WALDROP Monitor Metabolic syndrome Morbid obesity Consistent carbohydrate diet Lovenox 40 mg sc daily Plan discussed with patient in which all questions have been answered Case discussed with Dr. Carrero Plan discussed with: Patient My Orders My Orders Orders - TIM BETTENCOURT Procedure Category Date Status Time Urinalysis LAB 07/20/24 Verified 11:51 Thyroid Stimulating LAB 07/20/24 Verified Hormone 11:51 Drug Screen LAB 07/20/24 Verified 11:51 Hemoglobin A1c LAB 07/20/24 Verified 11:51 Magnesium LAB 07/20/24 Verified 11:51 Ceftriaxone Ivpb PHA 07/21/24 Verified Rocephin 09:00 Azithromycin 500mg/ PHA 07/20/24 Verified 250ml (Zithromax 50 12:00 Ceftriaxone Ivpb PHA 07/20/24 Verified Rocephin 12:00 Bipap/Cpap For Sleep RT 07/20/24 Verified Apnea 11:51 Date of Service: Jul 20, 2024 Billing Provider: SHERLEY REESE MD Common Visit Codes: [id number] INP/OBS CARE(HIGH) TIM BETTENCOURT Jul 20, 2024 11:54 SHERLEY REESE MD Jul 25, 2024 23:58
--- NOTE | 2024-07-20 13:03 | DVHSR ---
APPROVED REPORT EXAM: LIMITED Two-dimensional and M-mode echocardiogram with Doppler and color Doppler. Blood Pressure: 133/64 mmHg INDICATION lv function, assess right side RISK FACTORS Obesity: Height: '9, Weight: 496 DIMENSIONS LVDd5.3 (3.8-5.7cm)LA (2D) (1.9-4.0cm)Aortic Root (2.0-3.7cm) LVDs3.8 (2.5-4.0cm)LA (MM) (1.9-4.0cm)Aortic Cusp Exc (1.5-2.0cm) EF (%) 55.0 (55-70%)Rt. Atrium (1.9-4.0cm)Asc. Aorta cm IVSd1.3 (0.7-1.1cm)RV (D) (1.8-2.4cm) PWd1.3 (0.7-1.1cm) Mitral Valve MitralMitral Stenosis E/A ratio0.02D MVAcm2 Aortic Valve Aortic ValveAortic Stenosis LVOT Diameter2.4 (1.8-2.4cm)Doppler AVAcm2 Other Information Quality : Technically LimitedRhythm : Technically limited study due to pt sitting all the way up, coughing Conclusion lvef 60% by visual estimate RV not seen veryl imited study valves note well seen
[2024-07-20] MEDS: cefTRIAXone 1GM/50ML D5W 50 ML IV ONE (13:43)
[2024-07-20] MEDS: AZITHROMYCIN 500MG/ 250ML 250 ML IV SCH (13:44)
[2024-07-20] MEDS ORDERED: ALBU108A5 IN (15:11)
--- NOTE | 2024-07-20 18:19 | DVH ---
EXAM: US BILAT LOW EXT ART DUPLEX HISTORY: Metabolic syndrome COMPARISON: None TECHNIQUE: Real-time grayscale and color Doppler images of the bilateral lower extremities were obta ined with spectral waveform analysis. Findings: Arterial peak systolic velocities reported in units of centimeters per second (cm/sec): Right side: Common femoral - 79 Profunda - 64 Proximal SFA - 71 Mid SFA - 97 Distal SFA - 93 Popliteal - 61 Posterior tibial - 76 Dorsalis pedis - 35 Diffuse triphasic waveforms Left side: Common femoral - 95 Profunda - 68 Proximal SFA - 60 Mid SFA - 64 Distal SFA - 57 Popliteal - 45 Posterior tibial - 88 Dorsalis pedis - 69 Diffuse triphasic waveforms IMPRESSION: 1. No evidence of hemodynamically significant stenosis throughout the bilateral lower extremity arter ial systems. Velocity ratio Percentage stenosis <1.5:1 Normal 1.5-2:1 25-50% 2-4:1 50-75% No flow Occluded
[2024-07-20 18:35] LABS: % Iron Saturation 10.9 % (20-55)
[2024-07-20] MEDS: ALBUTEROL SULF 2.5 MG/0.5ML(0.5%) NEB SOLN NEB SCH (19:14)
[2024-07-20] MEDS: IPRATROPIUM BROM 0.5 MG/2.5ML INH SOL NEB SCH (19:14)
[2024-07-20 21:17] LABS: Urine Bacteria None Seen /hpf (None Seen)
[2024-07-20 22:00] LABS: Urine Blood Negative /uL (Negative); Urine Clarity Clear (Clear); Urine Color Light-Yellow (Yellow); Urine Protein, UAD Negative (Negative); Urine Specific Gravity 1.008 (1.001-1.035); Urine Squamous Epithelial Cell FEW /hpf (<5); Urine Urobilinogen Normal (Negative); Urine pH 6.5 (5.0-9.0)
[2024-07-20 22:46] LABS: COVID19 ANTIGEN SOFIA FIA NEGATIVE (NEGATIVE); Rapid Influenza A Negative (Negative); Rapid Influenza B Negative (Negative)
[2024-07-21] VITALS (13 sets, daily range): BP systolic 108–121; BP diastolic 58–71; PULSE 76–102; RESP 16–20; TEMP 36.7; O2SAT 92–99
[2024-07-21 07:47] LABS: Basophils # (auto) 0.1 10 ^3/uL (0-0.2); Hemoglobin 11.4 g/dL (13.5-17.5); Nucleated Red Blood Cells % 0.1 %; White Blood Cell 6.3 10^3/uL (4.4-10.8)
[2024-07-21 07:49] LABS: Basophils % (auto) 0.9 % (0.0-2.0); Eosinophils # (auto) 0.3 10 ^3/uL (0-0.8); Eosinophils % (auto) 5.1 % (0.0-7.0); Hematocrit 35.1 % (41.0-53.0); Lymphocytes # (auto) 1.4 10 ^3/uL (0.4-5.4); Lymphocytes % (auto) 22.1 % (10.0-50.0); Mean Corpuscular Hemoglobin 25.6 pg (28.0-32.0); Mean Corpuscular Hgb Conc. 32.5 g/dL (32.0-36.0); Mean Corpuscular Volume 78.9 fL (80.0-100.0); Monocytes # (auto) 0.5 10 ^3/uL (0-1.3); Monocytes % (auto) 8.1 % (0.0-12.0); Neutrophils % (auto) 63.8 % (37.0-80.0); Platelet Count (auto) 255 10^3/uL (140-450); Red Blood Cells 4.45 10^6/uL (4.5-5.90); Red Cell Distribution Width 16.6 % (11.8-14.3)
[2024-07-21 09:25] LABS: Albumin 4.1 g/dL (3.2-4.8); Alkaline Phosphatase 105 U/L (46-116); Anion Gap 8 (5-15); BUN/Creatinine Ratio 13.9 (10.0-20.0); Blood Urea Nitrogen 11 mg/dL (9-23); Calcium 9.5 mg/dL (8.7-10.4); Carbon Dioxide 29 mmol/L (20-31); Chloride 101 mmol/L (98-107); Potassium 4.2 mmol/L (3.5-5.1); Sodium 138 mmol/L (136-145)
[2024-07-21 09:26] LABS: Bilirubin, Total 0.5 mg/dL (0.2-1.0); Total Protein 7.6 g/dL (5.7-8.2)
[2024-07-21 09:31] LABS: Alanine Aminotransferase 67 U/L (7-40); Aspartate Aminotransferase 48 U/L (13-40); Glucose 125 mg/dL (74-106)
[2024-07-21] MEDS: FUROSEMIDE 20 MG/2 ML VIAL IV ONE (10:08)
[2024-07-21] MEDS: cefTRIAXone 1GM/50ML D5W 50 ML IV SCH (10:09)
[2024-07-21] MEDS: ENOXAPARIN SOD 40 MG/0.4 ML SYRINGE SC SCH (10:10)
[2024-07-21] MEDS: HYDROcodone-ACET 5/325MG TAB PO PRN (10:11)
[2024-07-21 13:14] LABS: Amphetamine Screen, Urine Neg (NEGATIVE); Barbiturate Scree,Urine Neg (NEGATIVE); Benzodiazephine Screen, Urine Neg (NEGATIVE); Cocaine Screen, Urine Neg (NEGATIVE); Opiate Scree,Urine Neg (NEGATIVE); Phencyclidine Screen, Urine Neg (NEGATIVE)
[2024-07-21 13:25] LABS: Cannabinoid Screen, Urine Neg (NEGATIVE)
[2024-07-21 13:50] LABS: Cholesterol 156 mg/dL (< 200)
[2024-07-21 13:51] LABS: Triglycerides 145 mg/dL (< 150)
[2024-07-21 13:56] LABS: HDL Cholesterol 20 mg/dL (40-59); LDL Cholesterol 119 mg/dL (< 100)
--- NOTE | 2024-07-21 16:35 | DVHDSRES ---
Discharge Summary Date of Admission Resident Creating Document: TIM BETTENCOURT RESIDENT Jul 19, 2024 at 10:11 Date of Discharge: Jul 21, 2024 Labs/Diagnostic Data: Laboratory Results Test 07/21/24 09:47 07/21/24 07:05 07/20/24 21:10 07/20/24 06:33 Triglycerides Level 145 mg/dL (< 150) Cholesterol Level 156 mg/dL (< 200) LDL Cholesterol 119 mg/dL (< 100) HDL Cholesterol 20 mg/dL (40-59) White Blood Count 6.3 10^3/uL (4.4-10.8) Red Blood Count 4.45 10^6/uL (4.5-5.90) Hemoglobin 11.4 g/dL (13.5-17.5) Hematocrit 35.1 % (41.0-53.0) Mean Corpuscular Volume 78.9 fL (80.0-100.0) Mean Corpuscular Hemoglobin 25.6 pg (28.0-32.0) Mean Corpuscular Hemoglobin Concent 32.5 g/dL (32.0-36.0) Red Cell Distribution Width 16.6 % (11.8-14.3) Platelet Count 255 10^3/uL (140-450) Mean Platelet Volume 7.6 fL (6.9-10.8) Neutrophils (%) (Auto) 63.8 % (37.0-80.0) Lymphocytes (%) (Auto) 22.1 % (10.0-50.0) Monocytes (%) (Auto) 8.1 % (0.0-12.0) Eosinophils (%) (Auto) 5.1 % (0.0-7.0) Basophils (%) (Auto) 0.9 % (0.0-2.0) Neutrophils # (Auto) 4.0 10 ^3/uL (1.6-8.6) Lymphocytes # (Auto) 1.4 10 ^3/uL (0.4-5.4) Monocytes # (Auto) 0.5 10 ^3/uL (0-1.3) Eosinophils # (Auto) 0.3 10 ^3/uL (0-0.8) Basophils # (Auto) 0.1 10 ^3/uL (0-0.2) Nucleated Red Blood Cells 0.1 % Sodium Level 138 mmol/L (136-145) Potassium Level 4.2 mmol/L (3.5-5.1) Chloride Level 101 mmol/L (98-107) Carbon Dioxide Level 29 mmol/L (20-31) Anion Gap 8 (5-15) Blood Urea Nitrogen 11 mg/dL (9-23) Creatinine 0.79 mg/dL (0.700-1.30) Glomerular Filtration Rate Calc 120 mL/min (>90) BUN/Creatinine Ratio 13.9 (10.0-20.0) Serum Glucose 125 mg/dL (74-106) Calcium Level 9.5 mg/dL (8.7-10.4) Total Bilirubin 0.5 mg/dL (0.2-1.0) Aspartate Amino Transferase (AST) 48 U/L (13-40) Alanine Aminotransferase (ALT) 67 U/L (7-40) Alkaline Phosphatase 105 U/L (46-116) Total Protein 7.6 g/dL (5.7-8.2) Albumin 4.1 g/dL (3.2-4.8) Cortisol AM Sample 18.09 ug/dL (5.27-22.45) Urine Color Light-yellow (Yellow) Urine Clarity Clear (Clear) Urine pH 6.5 (5.0-9.0) Urine Specific [place] 1.008 (1.001-1.035) Urine Protein Negative (Negative) Urine Ketones Negative (Negative) Urine Blood Negative /uL (Negative) Urine Nitrite Negative (Negative) Urine Bilirubin Negative (Negative) Urine Urobilinogen Normal mg/dL (Negative) Urine Leukocyte Esterase Negative /uL (Negative) Urine RBC <1 /hpf (0 - 3) Urine Microscopic WBC /HPF (0-3) Urine Squamous Epithelial Cells Few /hpf (<5) Urine Bacteria None seen /hpf (None Seen) Urine Glucose Normal mg/dL (Normal) Urine Opiates Screen Neg (NEGATIVE) Urine Fentanyl Screen Neg (NEGATIVE) Urine Barbiturates Screen Neg (NEGATIVE) Urine Phencyclidine Screen Neg (NEGATIVE) Urine Amphetamines Screen Neg (NEGATIVE) Urine Benzodiazepines Screen Neg (NEGATIVE) Urine Cocaine Screen Neg (NEGATIVE) Urine Cannabinoids Screen Neg (NEGATIVE) Influenza Type A Antigen Negative (Negative) Influenza Type B Antigen Negative (Negative) SARS-CoV-2 Antigen (Rapid) Negative (NEGATIVE) Hemoglobin A1c 7.3 % A1C (<5.7) Magnesium Level 2.4 mg/dL (1.6-2.6) Iron Level 42 ug/dL (65-175) Total Iron Binding Capacity 385 ug/dL (250-425) Percent Iron Saturation 10.9 % (20-55) Thyroid Stimulating Hormone (TSH) 1.54 uIU/mL (0.55-4.78) Test 07/19/24 02:36 07/18/24 23:10 07/18/24 19:49 D-Dimer, Quantitative 0.95 mg/L FEU (0.0-0.49) Troponin I High Sensitivity 4 ng/L (</=54) B-Type Natriuretic Peptide 8.87 pg/mL (0-100) Other Laboratory Tests 07/21/24 07:05 Brief Hx & Hospital Course: This is a 33-year-old male patient with past medical history of obstructive sleep apnea - not on CPAP, hypertension who presented to the ER with a chief complaint of syncopal episodes, shortness of breath and lower extremity edema. He has a had 3 syncopal episodes, 1 on , 2nd on , 3rd was yesterday, in which patient felt darkened vision while he was walking in his house and he collapsed immediately. Denies any triggers or any nausea, diaphoresis, feeling of warmth or prior to the episode. He reports that he wakes up within 30 seconds of the episode and he is confused but does not bit his tongue or lose his urine/bowel. Denies Seizure-like activity. Also reports shortness of breaths on exertion, orthopnea and PND. Patient will bilateral lower extremity edema for the past 2 years, he is taking antibiotics which did not help with the swelling. A1c was performed which is 7.3. Patient was admitted last month at [facility] where he was told he has sepsis due to pneumonia and also was diagnosed with congestive heart failure. Social history: Lives with mother, denies smoking/drinking/illicit drug use During the hospitalization, patient kept on telemetry unit. He was diagnosed with acute exacerbation of congestive heart failure probably diastolic. Echo was completed which was a limited study given the body habitus. Patient also had atypical right-sided chest pain, troponins were unremarkable. He also required oxygen supplementation at 3 L via [place]. Patient does take oxygen at home. A1c was 7.3 and patient was diagnosed with new onset diabetes mellitus type 2. Patient will be discharged on metformin 500 mg daily. Patient was also started on hydrochlorothiazide 25 mg daily to control his blood pressure. Lower extremity Doppler and lower extremity arterial ultrasound was completed which were unremarkable. Patient has chronic venous insufficiency and stasis dermatitis, would benefit from 10 to stockings. He was advised regarding healthy lifestyle , exercise and healthy diet. 07/21-patient is hemodynamically stable, no acute complaint and is therefore being discharged home. Patient agrees with the discharge planning. Discharge instruction: Continue metformin 500 mg daily Continue hydrochlorothiazide 25 mg daily Continue Lasix 40 mg daily Follow up with PCP within 7 days Follow up with the discharge clinic appointment within 7 days Discharge diagnosis: Likely congestive heart failure exacerbation Atypical chest pain likely secondary to above Diabetes mellitus type 2-newly diagnosed with acanthosis nigricans Chronic respiratory failure Obstructive sleep apnea Metabolic syndrome Ruled out [place] syndrome Ruled out PE Ruled out pneumonia Uncontrolled hypertension Chronic venous insufficiency Anemia, early microcytic or anemia of chronic disease Transaminitis secondary to WALDROP Morbid obesity Operations or Procedures ORDERING PHYSICIAN: TIM BETTENCOURT PROCEDURE(s): BLEAD - BiLat Low Ext Art Duplex REASON: Metabolic syndrome ORDER NUMBER(s): [id number], ACCESSION NUMBER(s): [id number] EXAM: US BILAT LOW EXT ART DUPLEX HISTORY: Metabolic syndrome COMPARISON: None TECHNIQUE: Real-time grayscale and color Doppler images of the bilateral lower extremities were obtained with spectral waveform analysis. Findings: Arterial peak systolic velocities reported in units of centimeters per second (cm/sec): Right side: Common femoral - 79 Profunda - 64 Proximal SFA - 71 Mid SFA - 97 Distal SFA - 93 Popliteal - 61 Posterior tibial - 76 Dorsalis pedis - 35 Diffuse triphasic waveforms Left side: Common femoral - 95 Profunda - 68 Proximal SFA - 60 Mid SFA - 64 Distal SFA - 57 Popliteal - 45 Posterior tibial - 88 Dorsalis pedis - 69 Diffuse triphasic waveforms IMPRESSION: 1. No evidence of hemodynamically significant stenosis throughout the bilateral lower extremity arterial systems. Velocity ratio Percentage stenosis <1.5:1 Normal 1.5-2:1 25-50% ORDERING PHYSICIAN: MAEGAN MALDONADO PROCEDURE(s): BLDVT - BiLat Lower DVT REASON: R/O DVT ORDER NUMBER(s): [id number], ACCESSION NUMBER(s): [id number] Bilateral lower extremity venous duplex Clinical History: R/O DVT Comparison: None Technique: Duplex Doppler evaluation of the deep venous systems of both lower extremities from the common femoral veins to the popliteal veins including color Doppler and spectral/pulsed waveform analysis was performed. Findings: RIGHT SIDE: The common femoral vein demonstrates appropriate compressibility and waveform variability . There is compressibility/patency of the great saphenous vein at the proximal thigh . The femoral vein demonstrates appropriate compressibility and waveform variability . The deep femoral vein demonstrates appropriate compressibility and waveform variability . The popliteal vein demonstrates appropriate compressibility and waveform variability . There is color flow at the tibioperoneal trunk and in the posterior tibial vein. LEFT SIDE: The common femoral vein demonstrates appropriate compressibility and waveform variability . There is compressibility/patency of the great saphenous vein at the proximal thigh . The femoral vein demonstrates appropriate compressibility and waveform variability . The deep femoral vein demonstrates appropriate compressibility and waveform variability . The popliteal vein demonstrates appropriate compressibility and waveform variability . There is color flow at the tibioperoneal trunk and in the posterior tibial vein. Impression: 1. No right or left femoropopliteal venous thrombosis. ATED BY: FANTA CYR MD DICTATED DATE/TIME: 07/19/24 105 SIGNED BY: FANTA CYR MD SIGNED DATE/TIME: 07/19/24 105 CC: Condition at Discharge: Stable Final Diagnosis/Problems List Likely congestive heart failure exacerbation Atypical chest pain likely secondary to above Diabetes mellitus type 2-newly diagnosed with acanthosis nigricans Chronic respiratory failure Obstructive sleep apnea Metabolic syndrome Ruled out Edwin syndrome Ruled out PE Ruled out pneumonia Uncontrolled hypertension Chronic venous insufficiency Anemia, early microcytic or anemia of chronic disease Transaminitis secondary to WALDROP Morbid obesity Discharge Disposition: Home Discharge Instruct/Medications Diet: Cardiac 2g Na,low cholest Activity: Light activity Follow Up/Referral: Follow up primary care physician within 7 days Follow up with the discharge clinic appointment within 7 days Medications: Per EMR Discharge Statement: "Patient was advised to return to the ER or call 911 if any headaches, dizziness, shortness of breath, chest pain, abdominal pain, bleeding, fevers, or worsening of medical condition. Patient was counseled about treatment plan, medications, possible side effects, patientverbalized understanding. All questions were answered to the best of my ability. This discharge took greater then 30 minutes in planning, reviewing documentation, counseling the patient, and discussing with other team members." ASSESSMENT ASSESSMENT Assessment Likely congestive heart failure exacerbation Atypical chest pain likely secondary to above Diabetes mellitus type 2-newly diagnosed Chronic respiratory failure Obstructive sleep apnea Ruled out PE Ruled out pneumonia Date of Service: Jul 21, 2024 Billing Provider: SHERLEY REESE MD Common Visit Codes: [id number] DISCH DAY >30min TIM BETTENCOURT Jul 21, 2024 16:35 SHERLEY REESE MD Jul 26, 2024 00:28
[2024-07-21] MEDS ORDERED: METF-370 PO (16:42)
== END 2024-07-21 18:00 | disposition home or self-care (01) | DRG 194 ==
LOC: EDBD 19:24 → ER 19:24 → TELE 07-19 10:11 → ER 07-19 10:19 → TELE-WESTW 07-19 21:50 → OVERFLOW 07-20 15:57 → WEST WING 07-20 16:01 → OVERFLOW 07-21 13:37 → TELE-WESTW 07-21 13:45
PROVIDERS: ADMIT Student in an Organized Health Care Education/Training Program; ATTEND Emergency Medicine
PROC: 5A09357 Assistance with Respiratory Ventilation, Less than 24 Consecutive Hours, Continuous Positive Airway Pressure (ICD-10-PCS; principal; 2024-07-20)
PROC: 5A09357 Assistance with Respiratory Ventilation, Less than 24 Consecutive Hours, Continuous Positive Airway Pressure (ICD-10-PCS; 2024-07-21)
DX: I11.0 Hypertensive heart disease with heart failure (principal); J96.10 Chronic respiratory failure, unspecified whether with hypoxia or hypercapnia; Z68.45 Body mass index [BMI] 70 or greater, adult; D63.8 Anemia in other chronic diseases classified elsewhere; K75.81 Nonalcoholic steatohepatitis (NASH); E11.9 Type 2 diabetes mellitus without complications; D50.9 Iron deficiency anemia, unspecified; I50.33 Acute on chronic diastolic (congestive) heart failure; E88.810 Metabolic syndrome; F12.90 Cannabis use, unspecified, uncomplicated; J45.909 Unspecified asthma, uncomplicated; Z20.822 Contact with and (suspected) exposure to COVID-19; E66.01 Morbid (severe) obesity due to excess calories; R74.01 Elevation of levels of liver transaminase levels; F17.210 Nicotine dependence, cigarettes, uncomplicated; Z86.718 Personal history of other venous thrombosis and embolism; L83 Acanthosis nigricans
CPT/HCPCS: 36415; 71046; 78582; 80053; 80061; 80307; 81001; 82533; 83036; 83540; 83550; 83735; 83880; 84443; 84484; 85025; 85379; 87081; 87426; 87804; 93005; 93306; 93925; 93970; 94640; 94660; G0378